=== PATIENT | female | born 1960 | race African-American/Black ===

== ENCOUNTER 2021-01-10 07:56 | Outpatient (REF) | payer OTHER, SELFPAY ==
--- NOTE | ~2021-01-10 | MM_ITS ---
EXAMINATION: MM SCREENING DIGITAL BREAST TOMOSYNTHESIS, BILATERAL CLINICAL INFORMATION: Screening. Asymptomatic. The lifetime risk of breast cancer based on the Tyrer-Cuzick Model is 7%. COMPARISON: Mammography: 01/05/2020, 12/30/2018, 09/17/2017 TECHNIQUE: Digital breast tomosynthesis is performed in both the craniocaudal and mediolateral oblique views along with computer-aided detection (CAD). Synthesized 2D images are generated from the tomosynthesis. FINDINGS: There are scattered areas of fibroglandular density (ACR BI-RADS breast composition Category b). There are no significant masses, abnormal calcifications, or other abnormalities. Parenchymal pattern is similar to prior studies. There is denser breast tissue composition in the bilateral anterior breasts. Intramammary nodes again seen mid upper outer right breast. The axilla and skin contours are unremarkable. No significant changes. MM/MM tomosynthesis screening BI IMPRESSION: No mammographic evidence of malignancy. ASSESSMENT: BI-RADS 2: Benign RECOMMENDATION: Routine annual mammography screening. This patient's information was entered into a reminder system with a target due date for their next mammogram.
== END 2021-01-10 07:57 | disposition home or self-care (01) ==
LOC: HO.MAMMO 07:56
PROVIDERS: PCP Internal Medicine; Visit Provider Internal Medicine
DX: Z12.31 Encounter for screening mammogram for malignant neoplasm of breast (principal)
CPT/HCPCS: 77063; 77067

== ENCOUNTER 2022-01-16 10:09 | Outpatient (REF) | payer OTHER, SELFPAY ==
--- NOTE | ~2022-01-16 | MM_ITS ---
EXAMINATION: MM SCREENING DIGITAL BREAST TOMOSYNTHESIS, BILATERAL CLINICAL INFORMATION: Screening. Asymptomatic. The lifetime risk of breast cancer based on the Tyrer-Cuzick Model is 7%. COMPARISON: Mammography: 01/10/2021, 01/05/2020, 12/30/2018 TECHNIQUE: Digital breast tomosynthesis is performed in both the craniocaudal and mediolateral oblique views along with computer-aided detection (CAD). Synthesized 2D images are generated from the tomosynthesis. FINDINGS: There are scattered areas of fibroglandular density (ACR BI-RADS breast composition Category b). There is no developing density or interval mass or architectural abnormality. The axilla and skin contours are unremarkable. Left breast shows no abnormal calcifications. Right breast has fine calcifications mid outer breast, likely 10:00 position, questionably increased. Patient will be recalled for additional imaging. MM/MM tomosynthesis screening BI IMPRESSION: Right: -Fine calcifications mid outer right breast questionably increased. Left: -No mammographic evidence of malignancy. ASSESSMENT: BI-RADS 0: Incomplete - Need Additional Imaging Evaluation RECOMMENDATION: 1. Additional views of the right breast (magnification CC, magnification ML). 2. Radiology department staff will contact the patient for additional imaging. This patient's information was entered into a reminder system with a target due date for their next mammogram.
== END 2022-01-16 10:10 | disposition home or self-care (01) ==
LOC: HO.MAMMO 10:09
PROVIDERS: Visit Provider Internal Medicine
DX: Z12.31 Encounter for screening mammogram for malignant neoplasm of breast (principal)
CPT/HCPCS: 77063; 77067

== ENCOUNTER 2023-01-22 08:50 | Outpatient (REF) | payer MEDICARE, SELFPAY ==
--- NOTE | ~2023-01-22 | MM_ITS ---
EXAMINATION: MM SCREENING DIGITAL BREAST TOMOSYNTHESIS, BILATERAL CLINICAL INFORMATION: Screening. Asymptomatic. The patient for additional imaging from the 01/16/2022 mammogram for further evaluation of calcifications in the upper outer quadrant of the right breast. She did not return. The current mammogram is the only mammogram performed since that time. COMPARISON: Mammography: This study is compared with prior exams dating back to 2018. TECHNIQUE: Digital breast tomosynthesis is performed in both the craniocaudal and mediolateral oblique views along with computer-aided detection (CAD). Synthesized 2D images are generated from the tomosynthesis. FINDINGS: There are scattered areas of fibroglandular density (ACR BI-RADS breast composition Category b). There are faint, grouped calcifications in the upper outer quadrant of the right breast at a middle depth. Further mammographic evaluation magnification is advised. In the left breast, there are no significant masses, abnormal calcifications, or other abnormalities. MM/MM tomosynthesis screening BI IMPRESSION: Right breast calcifications warrant additional mammographic imaging with magnification. No mammographic signs of malignancy left breast. ASSESSMENT: BI-RADS BI-RADS 0 - Incomplete: Needs additional Imaging. RECOMMENDATION: Additional views of the right breast with magnification. Radiology department staff will contact the patient for additional imaging. Additional Imaging required This examination should not preclude the clinical evaluation of a suspicious palpable abnormality. This patient's information was entered into a reminder system with a target due date for their next mammogram.
== END 2023-01-22 08:51 | disposition home or self-care (01) ==
LOC: HO.MAMMO 08:50
PROVIDERS: PCP Internal Medicine; Visit Provider Internal Medicine
DX: Z12.31 Encounter for screening mammogram for malignant neoplasm of breast (principal)
CPT/HCPCS: 77063; 77067

== ENCOUNTER → 2023-01-22 09:00 | Outpatient (BNV) | payer MEDICARE, SELFPAY | PROVIDERS: PCP Internal Medicine; Visit Provider Radiology Diagnostic Radiology | DX: Z12.31 Encounter for screening mammogram for malignant neoplasm of breast (principal) | CPT/HCPCS: 77063; 77067 ==

== ENCOUNTER 2023-04-06 10:58 | Outpatient (REF) | payer MEDICARE, SELFPAY ==
--- NOTE | ~2023-04-06 | MM_ITS ---
EXAMINATION: MM DIAGNOSTIC DIGITAL MAMMOGRAPHY, RIGHT CLINICAL INFORMATION: Evaluate calcifications upper outer quadrant right breast middle one third. COMPARISON: Mammography: 01/22/2023, and dating back to 2012. TECHNIQUE: Digital mammography is performed in the following views: Spot magnification 2-D CC and ML views. FINDINGS: There are scattered areas of fibroglandular density (ACR BI-RADS breast composition Category b). Calcifications in the upper outer quadrant of the right breast have been present since 2014, however never formally evaluated with magnification views it is likely that they are unchanged and benign, however I have no prior magnification views to compare directly. Recommend six-month interval follow-up right breast CC and ML magnification views to ensure stability. MM/MM added views RT IMPRESSION: Additional views show no probably benign calcifications upper outer right breast, previously followed but no magnification views were obtained to compare. Hence, six-month interval follow-up with standard magnification views recommended. ASSESSMENT: BI-RADS BI-RADS 3 - Probably benign finding(s) - 6 month follow-up suggested RECOMMENDATION: 6 Month F/U This patient's information was entered into a reminder system with a target due date for their next mammogram.
== END 2023-04-06 10:59 | disposition home or self-care (01) ==
LOC: HO.MAMMO 10:58
PROVIDERS: PCP Internal Medicine; Visit Provider Internal Medicine
DX: R92.8 Other abnormal and inconclusive findings on diagnostic imaging of breast (principal)
CPT/HCPCS: 77065

== ENCOUNTER → 2023-04-06 11:00 | Outpatient (BNV) | payer MEDICARE, SELFPAY | PROVIDERS: PCP Internal Medicine; Visit Provider Radiology Diagnostic Radiology | DX: R92.1 Mammographic calcification found on diagnostic imaging of breast (principal) | CPT/HCPCS: 77065 ==

== ENCOUNTER 2023-10-05 11:20 | Outpatient (REF) | payer MEDICARE, SELFPAY ==
--- NOTE | ~2023-10-05 | MM_ITS ---
EXAMINATION: MM DIAGNOSTIC DIGITAL BREAST TOMOSYNTHESIS, RIGHT CLINICAL INFORMATION: 6 month follow-up for right breast calcifications upper outer quadrant, middle depth. COMPARISON: Mammography: 04/06/2023, 01/22/2023 (BI-RADS 0), 01/16/2022, and dating back to 2012. TECHNIQUE: Digital left breast tomosynthesis is performed in both the craniocaudal and mediolateral oblique views along with computer-aided detection (CAD). Synthesized 2D images are generated from the tomosynthesis. In addition, 2-D spot magnification right CC and ML views were obtained. FINDINGS: There are scattered areas of fibroglandular density (ACR BI-RADS breast composition Category b). Calcifications in the upper outer quadrant of the right breast have been present since 2014, and are completely unchanged from the prior magnification views as well as dating back to 2014 on prior mammograms. There has been no aggressive change, there is no significant pleomorphism, and these are benign. Stable lymph node in the upper outer right breast middle one third. Parenchymal pattern is unchanged. No new masses or areas of architectural distortion. No skin or axillary abnormalities. MM/MM tomosynthesis diagnostic RT IMPRESSION: -Calcifications are unchanged from the prior magnification views 04/06/2023. There are also unchanged from prior mammograms dating back to 2014. These are benign and no further follow-up is deemed necessary. -Recommend the patient resume routine annual screening mammography in January 2024. ASSESSMENT: BI-RADS BI-RADS 2 - Benign Findings RECOMMENDATION: 1 year F/U Results were provided to the patient at time of visit by the technologist. This patient's information was entered into a reminder system with a target due date for their next mammogram.
== END 2023-10-05 11:21 | disposition home or self-care (01) ==
LOC: HO.MAMMO 11:20
PROVIDERS: PCP Internal Medicine; Visit Provider Internal Medicine
DX: R92.8 Other abnormal and inconclusive findings on diagnostic imaging of breast (principal)
CPT/HCPCS: 77061; 77065

== ENCOUNTER → 2023-10-05 11:30 | Outpatient (BNV) | payer MEDICARE, SELFPAY | PROVIDERS: PCP Internal Medicine; Visit Provider Radiology Diagnostic Radiology | DX: R92.1 Mammographic calcification found on diagnostic imaging of breast (principal) | CPT/HCPCS: 77065; G0279 ==

== ENCOUNTER 2024-01-28 09:05 | Outpatient (REF) | payer MEDICARE, SELFPAY ==
--- NOTE | ~2024-01-28 | MM_ITS ---
EXAMINATION: MM SCREENING DIGITAL BREAST TOMOSYNTHESIS, BILATERAL CLINICAL INFORMATION: Screening. Asymptomatic. COMPARISON: Mammography: Comparison is made with available priors TECHNIQUE: Digital breast mammography with tomosynthesis is performed in both the craniocaudal and mediolateral oblique views along with computer-aided detection (CAD). FINDINGS: There are scattered areas of fibroglandular density (ACR BI-RADS breast composition Category b). There are no significant masses, abnormal calcifications, or other abnormalities. MM/MM tomosynthesis screening BI IMPRESSION: No mammographic evidence of malignancy. ASSESSMENT: BI-RADS BI-RADS 1 - Negative RECOMMENDATION: Routine annual mammography screening. 1 year F/U This examination should not preclude the clinical evaluation of a suspicious palpable abnormality. This patient's information was entered into a reminder system with a target due date for their next mammogram. Electronically signed by: Antonella Roque DO 02/10/2024 10:08 AM TRES
== END 2024-01-28 09:06 | disposition home or self-care (01) ==
LOC: HO.MAMMO 09:05
PROVIDERS: Visit Provider Internal Medicine
DX: Z12.31 Encounter for screening mammogram for malignant neoplasm of breast (principal)
CPT/HCPCS: 77063; 77067

== ENCOUNTER → 2024-01-28 09:15 | Outpatient (BNV) | payer MEDICARE, SELFPAY | PROVIDERS: Visit Provider Internal Medicine | DX: Z12.31 Encounter for screening mammogram for malignant neoplasm of breast (principal) | CPT/HCPCS: 77063; 77067 ==

== ENCOUNTER 2024-10-17 09:19 | Outpatient (AMB) | payer MEDICARE, SELFPAY ==
--- NOTE | 2024-10-17 09:22 | MHC.OFFVIS ---
Vital Signs 10/17/24 09:27 Height 5 ft 4 in Intake Visit Reasons: 6m Allergies No Known Allergies (No Known Allergies*) Allergy (Unverified 10/17/24 09:28) Medication List - Last Reconciled 10/17/24 by Rima Mendoza CNP glipizide ER 2.5 mg PO DAILY hydroxyzine HCl 25 mg PO DAILY lisinopril 2.5 mg PO DAILY metformin 1,000 mg PO BID oxybutynin chloride ER 15 mg PO DAILY pantoprazole 20 mg PO DAILY pravastatin 40 mg PO DAILY sertraline 100 mg PO DAILY HPI Comments Details: 64 y/o RH woman who was admitted at [facility] in October of 2019 with SAH. No etiology of bleed was discovered. She was put on an antiepileptic but it was not clear if she had a seizure. 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 She was not able to communicate since then, but this was improving. 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 She had a difficult month after her mother passed in 05/2024 before her birthday. She was doing better now and mood was okay. She was trying to speak more and her speech was more clear. Sleep was better now. She was not taking hydroxyzine every night. She was able to sleep through the night unless her dog woke her, but she was able to fall back to sleep. She was going for some walks, no falls. [facility] Medical History (Updated 10/17/24 @ 09:37 by Rima Mendoza CNP) HLD (hyperlipidemia) Somatization disorder Depression Aphasia Cerebral infarction Subarachnoid hemorrhage Seizure disorder Stroke Cerebral aneurysm Myoclonus Insomnia GERD (gastroesophageal reflux disease) Type 2 diabetes mellitus Review of Systems Const Denies chills, Denies daytime sleepiness, Denies difficulty sleeping, Denies fatigue, Denies fever(s), Denies frequent falls, Denies headache(s), Denies increased appetite, Denies poor appetite, Denies snoring, Denies weakness, Denies weight gain and Denies weight loss Eyes Denies loss of vision ENT Denies vertigo, Denies dizziness and Denies headache(s) Card Denies chest pain at rest, Denies chest pain with activity, Denies leg edema and Denies palpitations Resp Denies snoring GI Denies constipation, Denies heartburn, Denies diarrhea and Denies nausea Denies urinary frequency, Denies urinary incontinence and Denies urinary urgency Musc Denies abnormal gait, Denies numbness and Denies tingling Skin/Breast Denies dry skin and Denies rash Neuro Details: +Difficulty speaking Denies abnormal gait, Denies vertigo, Denies dizziness, Denies frequent falls, Denies headache(s), Denies lack of coordination, Denies loss of vision, Denies memory loss, Denies numbness, Denies restless legs, Denies seizure-like activity, Denies tingling, Denies paresthesias, Denies tremor(s) and Denies weakness Psych Denies anxiety, Denies depression, Denies auditory hallucinations, Denies memory loss, Denies visual hallucinations and Denies suicidal ideation Endo Denies fatigue and Denies palpitations Physical Exam Const Other: General Appearance:? normal, in no acute distress. Skin:? no rashes, no significant birthmarks. Heart:? S1, S2 normal, no murmurs. Lungs:? clear anteriorly and posteriorly. Extremities:? no edema. Psych:? alert, oriented, cognitive function intact, cooperative with exam. Neuro Other: Mental Status:?Decreased spontaneous speech and fluency has improved, able to speak in full sentences. Intact comprehension. Able to read single word. Cranial Nerves:?Pupils are equal, round and reactive to light. External occular muscles are intact. Visual fajardo are full. Face is symmetrical. Facial sensations are normal. Tongue is midline. Palate elevates symmetrically. Shoulder shrugging is normal. Hearing to bedside conversation is normal. Motor Examination:?Normal muscle tone, bulk and strength,?Deep tendon reflexes are 2+,?Plantars are flexor.? Sensory Exam:?....? Coordination:?no ataxia,?no titubation.? Gait Exam: Slow and cautious. Cerebellar Signs:?[id number] and [id number]-[id number] is normal.? Extrapyramidal System:?No tremor, rigidity with normal facial expressions.? Pronator Drift:?not present.? Involuntary Movements:?Irregular sometime rhythmic and sometime jerking type right arm sometime left arm and at times head movements.? Speech:?Dysphasic. ? Assessment & Plan Assessment & Plan (1) Aphasia: Code(s): R47.01 - Aphasia Category: Medical Plan: Continue sertraline 100mg 1 tablet daily (2) Insomnia: Code(s): G47.00 - Insomnia, unspecified Category: Medical Qualifiers: Insomnia type: unspecified Qualified Code(s): G47.00 - Insomnia, unspecified Plan: Continue hydroxyzine 25mg 1 tablet as needed at bedtime (3) Somatization disorder: Code(s): F45.0 - Somatization disorder Category: Medical Plan: . Plan . Coding Level of Care Code Est Pt Level 4 (83652) Diagnoses Aphasia R47.01 Insomnia, unspecified type G47.00 Insomnia type: unspecified Somatization disorder F45.0
--- OUTSIDE RECORDS SUMMARY | 2024-10-17 09:29 | XMS_ITS | Patient Health Record ---
Author Organization [facility] Address [address] [place] [address] Care Team Providers Care Plumbing Foreman Name Role Phone Nadir AREVALO, Feliz Primary Care Provider Unavail able BlackMounika Unavailable [phone] Reason For Referral No Information Medications Medication SIG (Take, Route, Frequency, Duration) Notes Start Date End Date Status metFORMIN HCl 500 MG 1 tablet with meals Orally Twice a day 12/13/2014 Active oxyBUTYnin Chloride ER 15 MG 1 tablet Orally Once a day 12/13/2014 A ctive Problems Problem Type SNOMED Code ICD Code Onset Dates Problem Status W/U Status Risk Notes Problem Hallux valgus (972878754) Hallux Valgus (735.0) Active confirmed Problem Hammer toe (672749017) Hammer toe (735.4) Active confirmed Problem Pain in limb (86459483) Pain in Limb (729.5) Active confirmed Plan Of Treatment No Information Insurance Providers Payer Name Payer Address Payer Phone Subscriber Number Group Number Insured Name Patient Relationship to Insured Coverage Start Date Coverage End Date [facility] [address] [place] [address] [id number] Haven Burnett Self - patient is the insured Medical (General) History Medical History History ICD Code Diabetic Surgical History Surgery Date(Month/Year) bunionectomy right foot 2000 or 2001 right wrist 1999
--- OUTSIDE RECORDS SUMMARY | 2024-10-17 09:29 | XMS_ITS | Patient Health Record ---
Author Organization [facility] Address [address] [place] [address] Care Team Providers Care Lecturer Of Portuguese Name Role Phone Feliz Schmitz Primary Care Provider [place] [phone] Reason For Referral No Information Medications Medication SIG (Take, Route, Frequency, Duration) Notes Start Date End Date Status Simvastatin 20 MG 1 tablet in the even ing Orally Once a day Active Omeprazole 20 MG TK 1 C PO BID Oral for 90 Active metFORMIN HCl 500 MG TK 1 T PO BID WC Or al for 90 Active oxyBUTYnin Chloride ER 15 MG TK 1 T PO BID Oral for 90 Ac tive Problems Problem Type SNOMED Code ICD Code Onset Dates Problem Status W/U Status Risk Notes Problem [id number] Encounter for screening for malignant neoplasm of colon (Z12.11) Active confirmed Problem Screening for malignant neoplasm of rectum (876457286) Encounter for screening for malignant neoplasm of rectum (Z12.12) Active confirmed Problem 577229305 Gastroesophageal reflux disease, esophagitis presence not specified (K21.9) Active confirmed Plan Of Treatment Pending Test Test Name Order Date GI BIOPSY 08/23/2016 Future Test Test Name Order Date UPPER GI ENDOSCOPY 05/04/2016 COLONOSCOPY 05/04/2016 Insurance Providers Payer Name Payer Address Payer Phone Subscriber Number Group Number Insured Name Patient Relationship to Insured Coverage Start Date Coverage End Date [facility] [address] [place] [phone] [id number] CLAUDETTE PADILLA Self - patient is the insured Medical (General) History Medical History History ICD Code NIDDM Urinary incontinence Denies PA,CVA,Lung disease,renal disease GERD Hyperlipidemia Surgical History Surgery Date(Month/Year) Left carpal tunnel Right foot bunion
--- OUTSIDE RECORDS SUMMARY | 2024-10-17 09:29 | XMS_ITS | Clinical Summary ---
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 E11. 4 Active blood-glucose meter kit Check glucose at home every day. 4 Active FREESTYLE LANCETS MISC Use to check blood sugar once daily fasting. E11. 4 Active blood sugar diagnostic (FreeStyle Lite Strips) test strip Use to check blood sugar once daily fasting. E11. 4 Active OneTouch Ultra Test test strip Use as directed to check fsbs daily 4 12/25/19 25 Active ONETOUCH ULTRASOFT LANCETS MISC Use as directed to check fsbs daily 4 Active sertraline (ZOLOFT) 100 mg tablet Take 100 mg by mouth daily. Dr Boone Active pravastatin (PRAVACHOL) 40 mg tablet Take 1 tablet (40 mg total) by mouth 1 (one) time each day. 90 each 3 4 03/29/20 25 Active lisinopriL (PRINIVIL,ZESTR IL) 2.5 mg tablet Take 1 tablet (2.5 mg total) by mouth 1 (one) time each day. 90 each 3 4 03/29/20 25 Active glipiZIDE (GLUCOTROL XL) 2.5 mg 24 hr tablet Take 1 tablet (2.5 mg total) by mouth 1 (one) time each day. 90 each 3 4 03/29/20 25 Active metFORMIN (GLUCOPHAGE) 1,000 mg tablet Take 1 tablet (1,000 mg total) by mouth 2 (two) times a day with meals. 180 each 3 4 03/29/20 25 Active oxyBUTYnin XL (DITROPAN-XL) 15 mg 24 hr tablet Take 1 tablet (15 mg total) by mouth 1 (one) time each day. 90 each 3 4 03/29/20 25 Active pantoprazole (PROTONIX) 20 mg EC tablet Take 1 tablet (20 mg total) by mouth 1 (one) time each day. 90 each 3 4 03/29/20 25 Active OneTouch Ultra2 Meter misc CHECK GLUCOSE AT HOME EVERY DAY. 1 kit 5 Active hydrOXYzine HCL (ATARAX) 25 mg tablet TAKE 1 TABLET ORALLY NEEDED AT BEDTIME ONCE A DAY 90 DAY(S) 5 Active Active Problems Problem Noted Date Diagnosed Date Aphasia as late effect of cerebrovascular accide nt (CVA) 06/13/2020 Assessment & Plan (10/01/2024 9:12 AM EDT): Follows regularly with neuro. Assessment & Plan (03/30/2024 2:47 PM EST): Follows regularly with neuro. Weakness of extremity 12/07/2019 Essential hypertension 06/16/2018 Assessment & Plan (10/01/2024 9:12 AM EDT): The patient's antihypertensive regimen is based on their underlying medical issues. At the time of this visit, the blood pressure is well controlled on low dose of Lisinopril. The patient is instructed to follow a low sodium diet and to follow up in 4 months. Normal kidney function and electrolytes. Assessment & Plan (03/30/2024 2:47 PM EST): The patient's antihypertensive regimen is based on their underlying medical issues. At the time of this visit, the blood pressure is well controlled on low dose of Lisinopril. The patient is instructed to follow a low sodium diet and to follow up in 4 months. Normal kidney function and electrolytes. Orders: Hemoglobin A1c; Future Lipid panel with reflex to direct LDL; Future Basic metabolic panel; Future Hyperlipidemia 04/05/2018 Assessment & Plan (10/01/2024 9:12 AM EDT): Given the patients cardiac risk profile, the patient requires an LDL cholesterol of less than 70. I have instructed the patient on the principles of a low cholesterol diet and the importance of regular exercise. Will check a lipid profile before next visit Assessment & Plan (03/30/2024 2:47 PM EST): Given the patients cardiac risk profile, the patient requires an LDL cholesterol of less than 70. I have instructed the patient on the principles of a low cholesterol diet and the importance of regular exercise. Will check a lipid profile before next visit Orders: Hemoglobin A1c; Future Lipid panel with reflex to direct LDL; Future Basic metabolic panel; Future Carpal tunnel syndrome 11/30/2017 Overview (02/23/2024): 1995 Right-surgery Depression 11/30/2017 GERD (gastroesophageal reflux disease) 8 Microalbuminuria 11/30/2017 Type 2 diabetes mellitus wit h neurologic complication ([facility] V24, [facility] V28) 11/30/2017 Assessment & Plan (10/01/2024 9:12 AM EDT): Orders: Comprehensive metabolic panel; Future Hemoglobin A1c; Future Lipid panel with reflex to direct LDL; Future Microalbumin creatinine urine ratio; Future Assessment & Plan (05/28/2024 2:35 PM EST): Continue her regular meds. Will follow up in September. Assessment & Plan (03/30/2024 2:47 PM EST): Orders: Hemoglobin A1c; Future Lipid panel with reflex to direct LDL; Future Basic metabolic panel; Future Type 2 diabetes mellitus wit h renal manifestations ([facility] V24, [facility] V28) 11/30/2017 Assessment & Plan (10/01/2024 2:44 PM EDT): Good control of diabetes. Patient will continue with yearly Podiatric and Ophthomologic evaluations. Will continue Angiotensin Converting Enzyme Inhibitor for renal protection. Glipizide and Metformin. We discussed about healthy diet, and regular exercise. We will check a hemoglobin A1c today. Patient will follow up in 6 months Orders: Comprehensive metabolic panel; Future Hemoglobin A1c; Future Lipid panel with reflex to direct LDL; Future Microalbumin creatinine urine ratio; Future Assessment & Plan (03/30/2024 2:47 PM EST): Fair control of diabetes. Patient will continue with yearly Podiatric and Ophthomologic evaluations. Will continue Angiotensin Converting Enzyme Inhibitor for renal protection. Glipizide and Metformin. We discussed about healthy diet, and regular exercise. We will check a hemoglobin A1c today. Patient will follow up in 4 months Orders: Hemoglobin A1c; Future Lipid panel with reflex to direct LDL; Future Basic metabolic panel; Future Urinary incontinence 11/30/2017 Overview (02/23/2024): stress Encounters Date Type Department Care Team Description 10/01/2024 9:00 AM EDT Office Visit Adult Medicine [address] [phone] Nemo Hand MD Type 2 diabetes mellitus with diabetic microalbuminuria, without long-term current use of insulin ([facility] V24, [facility] V28) (Primary Dx); Type 2 diabetes mellitus with other neurologic complication, without long-term current use of insulin ([facility] V24, [facility] V28); Essential hypertension; Mixed hyperlipidemia; Aphasia as late effect of cerebrovascular accident (CVA); Screening for depression; Pneumococcal vaccination indicated; Encounter for immunization from Last 3 Months Immunizations Name Administration Dates Next Due Influenza Quadravalent, MDCK , 0.5ml, preservative free (Flucelvax) 6mo and older 01/13/2023,01/13/2022,02/17/2021,2019,01/04/2018 Influenza trivalent, 0.5mL, preservative free (Fluarix; FluLaval; Fluzone) ages 6mo and older (Afluria) 3 years and older 01/13/2016 Influenza trivalent, MDCK, 0 .5mL, preservative free (Flucelvax) 6mo and older 03/29/2024 Influenza, Unspecified 12/17/2018 Moderna SARS-CoV-2 COVID-19, mRNA, LNP-S, preservative free 04/04/2021,08/30/2020,08/02/2020 Pneumococcal conjugate 13 va lent (Prevnar 13, PCV13) 2mo and older 06/16/2018 Pneumococcal conjugate 20 va lent (Prevnar 20, PCV 20) 2mo and older 10/01/2024 Tdap Tetanus diptheria acell ular pertussis (Boostrix; Adacel) 7yo and older 05/16/2023,02/28/2012 Zoster recombinant (Shingrix ) 19yo and older 11/09/2017,07/25/2017 Surgical History Surgery Date Site/Laterality Comments TUBAL LIGATION 1993 PROCEDURE: HISTORICAL TUBAL LIGATION SECTION 1993 PROCEDURE: HISTORICAL COLONOSCOPY 08/23/2016 PROCEDURE: HISTORICAL COLONOSCOPY; COMMENT: EGD as well; Small hiatal hernia, GERD, mild sigmoid diverticulosis, internal hemorrhoids; repeat 10 yrs FOOT SURGERY Right PROCEDURE: HISTORICAL FOOT SURGERY; COMMENT: bunionectomy CARPAL TUNNEL RELEASE 1994 Right PROCEDURE: HISTORICAL CARPAL TUNNEL REL Medical History Medical History Date Comments Type 2 diabetes mellitus wit h renal manifestations ([facility] V24, [facility] V28) 11/30/2017 DX: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) Microalbuminuria 11/30/2017 DX:Microalbumin uria Type 2 diabetes mellitus wit h neurologic complication ([facility] V24, [facility] V28) 11/30/2017 DX: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) Carpal tunnel syndrome 11/30/2017 DX:Carpal tunnel syndrome; COMMENT: 1994 Right-surgery Urinary incontinence 11/30/2017 DX:Urinary incontinence; COMMENT: stress GERD (gastroesophageal reflux disease) 11/30/2017 DX:GERD (gastroesophageal reflux disease) Hyperlipidemia 04/05/2018 DX:Hyperlipidemi a Essential hypertension 06/16/2018 DX:Essent ial hypertension Subarachnoid bleed ([facility] V24, [facility] V28) 12/07/2019 DX:Subarachnoid bleed ([facility]) Family History Medical History Relation Name Comments Asthma Brother Arthritis Maternal Grandmother Diabetes Mother hypertension Relation Name Status Comments Brother Alive Father (Age 80s) Maternal Grandmother Mother Alive Son 1 Alive Son 2 Alive Social History Tobacco Use Types Packs/Day Years Used Date Smoking Tobacco: Never Smokeless Tobacco: Never Tobacco Cessation:Counseling Given: Not Answered Alcohol Use Standard Drinks/Week Comments Yes 0 (1 standard drink = 0.6 oz pur e alcohol) Housing Instability Answer Date Recorde d Are you worried that in the next 2 months you may not have stable housing? No 03/29/2024 Food Access & Nutrition Answer Date Rec orded Do you have access to a vari ety of food including fruits and vegetables? Yes 03/29/2024 Access to Healthcare Answer Date Record ed Within the last 3 months, ho w many times did you visit the emergency department for your medical care? 0 03/29/2024 Health Literacy Answer Date Recorded How often do you need to hav e someone help you when you read instructions, pamphlets, or other written material from your doctor or pharmacy? Never 03/29/2024 Caregiver: How often do you need to have someone help you when you read instructions, pamphlets, or other written material from your doctor or pharmacy? Not on file 03/29/2024 Financial Risk Answer Date Recorded How hard is it for you to pa y for the very basics like food, housing, medical care, and air conditioning / heating? Not very hard 03/29/2024 Transportation Answer Date Recorded Has the lack of transportati on kept you from meetings, work, or from getting things needed for daily living? No Has the lack of transportati on kept you from medical appointments or from getting medications? No 03/29/2024 Social Isolation Answer Date Recorded How often do you feel lonely or isolated from th ose around you? Never 03/29/2024 Food Risk Answer Date Recorded Within the past 12 months we worried whether our food would run out before we got money to buy more. Never true 03/29/2024 Within the past 12 months th e food we bought just didn't last and we didn't have money to get more. Never true 03/29/2024 Dependent Care Answer Date Recorded Do you need help finding or paying for care for your loved ones. For example, child care director or elderly care for an older adult? No 03/29/2024 Education Answer Date Recorded Do you think completing more education or training, like finishing a GED, going to college, or learning a trade, would be helpful for you? No 03/29/2024 Employment and Income Answer Date Recor ded During the last four weeks, have you been actively looking for work? No 03/29/2024 Living Situation Answer Date Recorded What is your living situation? 1 05/30/2023 Comments No Sex and Gender Information Value Date Recorded Sex Assigned at Not on file Legal Sex Female 1:56 PM EST Gender Identity Not on file Sexual Orientation Not on file Obstetrics History Last Filed Vital Signs Vital Sign Reading Time Taken Comments Blood Pressure 120/77 10/01/2024 8:49 AM EDT Pulse 73 10/01/2024 8:49 AM EDT Temperature 35.9 C (96.7 F) 10/01/2024 8:49 AM EDT Respiratory Rate 14 10/01/2024 8:49 AM EDT Oxygen Saturation - - Inhaled Oxygen Concentration - - Weight 93.7 kg (206 lb 9.6 oz) 10/01/2024 8:49 A M EDT Height 162.6 cm (5' 4 ) 10/01/2024 8:49 AM EDT Body Mass Index 35.46 10/01/2024 8:49 AM EDT Plan of Treatment Upcoming Encounters Date Type Department Care Team (Late st Contact Info) Description 04/02/2025 9:30 AM EST Office Visit Adult Medicine [address] [phone] Nemo Mckinney MD [address] [place] [phone] Health Maintenance Due Date Last Done Comments HIV Screening 03/27/2022 Medicare Annual Wellness Visit 03/27/2022 RSV Immunization Adult Patients (1 - Risk 60-74 years 1-dose series) 2022 Breast Cancer Screening 01/27/2025 01/28/2024 Diabetes: Annual Urine Albumin-Creatinine Ratio (uACR) 03/26/2025 03/26/2024, 06/18/2022 Diabetes: Blood Sugar Control Test (HGBA1C) 03/28/2025 09/26/2024, 03/29/2024, 11/18/2023, Additional history exists Diabetes: Annual Foot Exam 03/29/2025 03/29/2024 Social Influencers of Health Screening 03/29/2025 03/29/2024 Diabetes: Annual Retina Eye Exam 07/01/2025 07/01/2024, 06/24/2023 Diabetes: Annual GFR (Glomerular Filtration Rate) 09/26/2025 09/26/2024, 03/26/2024, 11/18/2023, Additional history exists Hypertension/CHF/CAD Annual BMP Blood Test 09/26/2025 09/26/2024, 03/26/2024, 11/18/2023, Additional history exists Depression Screening 09/27/2025 09/27/2024 Colorectal Cancer Screening: Colonoscopy 08/23/2026 08/23/2016 Cervical Cancer Screening: HPV 09/09/2026 09/09/2021 Cholesterol Screening (Lipid Panel) 09/26/2029 09/26/2024, 11/18/2023, 11/18/2023 DTaP,Tdap,and Td Vaccines (3 - Td or Tdap) 05/16/2033 05/16/2023, 02/28/2012 Zoster Vaccines Completed 11/09/2017, 07/25/2017 Hepatitis C Screening Completed 10/07/2018 COVID-19 Vaccine Completed 02/29/2024, , 08/30/2020, Additional history exists Influenza Vaccine Completed 03/29/2024, , 01/13/2022, Additional history exists Pneumococcal Vaccine: 50+ Years Completed 10/01/2024, 06/16/2018 Pneumococcal Vaccine: Pediatrics (0 to 5 Years) and At-Risk Patients (6 to 64 Years) Discontinued 10/01/2024, 06/16/2018 HIB Vaccines Aged Out No longer eligi ble based on patient's age to complete this topic HPV Vaccines Aged Out No longer eligi ble based on patient's age to complete this topic Hepatitis A Vaccines Aged Out No long er eligible based on patient's age to complete this topic Hepatitis B Vaccines Aged Out No long er eligible based on patient's age to complete this topic IPV Vaccines Aged Out No longer eligi ble based on patient's age to complete this topic MMR Vaccines Aged Out No longer eligi ble based on patient's age to complete this topic Meningococcal ACWY Vaccine Aged Out N o longer eligible based on patient's age to complete this topic Meningococcal B Vaccine Aged Out No l onger eligible based on patient's age to complete this topic RSV Immunization Patients Under 20 months Aged Out No longer eligible based on patient's age to complete this topic Varicella Vaccines Aged Out No longer eligible based on patient's age to complete this topic Procedures Procedure Name Priority Date/Time Associated Diagnosis Comments HEMOGLOBIN A1C Routine 09/26/2024 9:27 AM EDT Type 2 diabetes mellitus with diabetic microalbuminuria, without long-term current use of insulin ([facility] V24, [facility] V28) Type 2 diabetes mellitus with other neurologic complication, without long-term current use of insulin ([facility] V24, [facility] V28) Essential hypertension Mixed hyperlipidemia LIPID PANEL WITH REFLEX TO DIRECT LDL Routine 09/26/2024 9:27 AM EDT Type 2 diabetes mellitus with diabetic microalbuminuria, without long-term current use of insulin ([facility] V24, [facility] V28) Type 2 diabetes mellitus with other neurologic complication, without long-term current use of insulin ([facility] V24, [facility] V28) Essential hypertension Mixed hyperlipidemia BASIC METABOLIC PANEL Routine 09/26/2024 9:27 AM EDT Type 2 diabetes mellitus with diabetic microalbuminuria, without long-term current use of insulin ([facility] V24, [facility] V28) Type 2 diabetes mellitus with other neurologic complication, without long-term current use of insulin ([facility] V24, [facility] V28) Essential hypertension Mixed hyperlipidemia MICROALBUMIN CREATININE URINE RATIO Routine 03/26/2024 10:17 AM EST Type 2 diabetes mellitus with neurologic complication ([facility] V24, [facility] V28) Essential hypertension Type 2 diabetes mellitus with renal manifestations ([facility] V24, [facility] V28) Microalbuminuria EXTERNAL MAMMOGRAM REPORT Routine 01/28/2024 3:27 PM EDT DIABETES EYE EXAM Routine 06/24/2023 HPV Routine 09/09/2021 HEPATITIS C SCREENING Routine 10/07/2018 COLONOSCOPY Routine 08/23/2016 from Last 3 Months or Most Recently Relevant to Health Maintenance Results * (ABNORMAL) Lipid panel with reflex to direct LDL (09/26/2024 9:27 AM EDT) Cholesterol 142 0 - 200 mg/dL LAB CHEMISTRY METHOD 09/26/2024 1:22 PM EDT [facility] Triglycerides 101 0 - 150 mg/dL LAB CHEMISTRY METHOD 09/26/2024 1:22 PM EDT [facility] HDL 39(L) >=40 mg/dL LAB CHEMISTRY METHOD 09/26/2024 1:22 PM EDT [facility] LDL Calculated 83 0 - 100 mg/dL LAB CHEMISTRY METHOD 09/26/2024 1:22 PM EDT [facility] VLDL Cholesterol Harrison 20.2 mg/dL LAB CHEMISTRY METHOD 09/26/2024 1:22 PM EDT [facility] Non HDL Chol. (LDL+VLDL) 103 <145 mg/dL LAB CHEMISTRY METHOD 09/26/2024 1:22 PM EDT [facility] Chol/HDL Ratio 3.6 0.0 - 4.4 LAB CHEMISTRY METHOD 09/26/2024 1:22 PM EDT [facility] Blood Venous blood specimen / Unknown Venipuncture / Unknown 09/26/2024 9:27 AM EDT 09/26/2024 9:27 AM EDT us Nemo Mckinney MD LAB BLOOD ORDERABL ES Final Result [facility] [address] [place] [address], [place] [phone] * (ABNORMAL) Hemoglobin A1c (09/26/2024 9:27 AM EDT) Pathologist [facility] Hemoglobin A1C 6.9(H) <6.5 % LAB CHEMISTRY METHOD 09/26/2024 8:47 PM EDT [facility] Mean Bld Glu Estim. 151 mg/dL LAB CHEMISTRY METHOD 09/26/2024 8:47 PM EDT [facility] Blood Venous blood specimen / Unknown Venipuncture / Unknown 09/26/2024 9:27 AM EDT 09/26/2024 9:27 AM EDT Nemo Mckinney MD LAB BLOOD ORDERABL ES Final Result [facility] [address] [place] [address], [place] [phone] * (ABNORMAL) Basic metabolic panel (09/26/2024 9:27 AM EDT) [facility] Sodium 138 133 - 145 mmol/L LAB CHEMISTRY METHOD 09/26/2024 1:17 PM EDT [facility] Potassium 4.2 3.5 - 5.5 mmol/L LAB CHEMISTRY METHOD 09/26/2024 1:17 PM EDT [facility] Chloride 103 96 - 110 mmol/L LAB CHEMISTRY METHOD 09/26/2024 1:17 PM EDT [facility] CO2 26 21 - 32 mmol/L LAB CHEMISTRY METHOD 09/26/2024 1:17 PM EDT [facility] Anion Gap 9 3 - 11 LAB CHEMISTRY METHOD 09/26/2024 1:17 PM EDT [facility] Glucose 163(H) 70 - 100 mg/dL LAB CHEMISTRY METHOD 09/26/2024 1:17 PM EDT [facility] BUN 21 5 - 25 mg/dL LAB CHEMISTRY METHOD 09/26/2024 1:17 PM EDT [facility] Creatinine 0.87 0.50 - 1.10 mg/dL LAB CHEMISTRY METHOD 09/26/2024 1:17 PM EDT [facility] eGFR 75 >=60 mL/min/1. 73m2 LAB CHEMISTRY METHOD 09/26/2024 1:17 PM EDT [facility] Comment:Calculation based on the Chronic Kidney Disease Epidemiology Collaboration (CKD-EPI) equation refit without adjustment for race. BUN/Creatinine Ratio 24.1 LAB CHEMISTRY METHOD 09/26/2024 1:17 PM EDT [facility] Calcium 9.0 8.5 - 10.5 mg/dL LAB CHEMISTRY METHOD 09/26/2024 1:17 PM EDT [facility] Blood Venous blood specimen / Unknown Venipuncture / Unknown 09/26/2024 9:27 AM EDT 09/26/2024 9:27 AM EDT us Nemo Mckinney MD LAB BLOOD ORDERABL ES Final Result [facility] [address] [place] [address], * (ABNORMAL) Microalbumin creatinine urine ratio (03/26/2024 10:17 AM EST) Creatinine, Urine 314.0 mg/dL LAB CHEMISTRY METHOD 03/26/2024 2:21 PM EST [facility] Microalb, Ur 46.1(H) 0.0 - 29.0 mg/L LAB CHEMISTRY METHOD 03/26/2024 2:21 PM EST [facility] Microalb/Crea t Ratio 15 <30 mg/g creat LAB CHEMISTRY METHOD 03/26/2024 2:21 PM EST [facility] Urine Urine specimen obtained by clean catch procedure / Unknown Non-blood Collection / Unknown 03/26/2024 10:17 AM EST 03/26/2024 10:17 AM EST Result [facility] Nemo Mckinney MD LAB URINE ORDERABL ES Final Result [facility] ([facility] [[email or web address] [address] [place] [address], * External Mammogram Report (01/28/2024 3:27 PM EDT) Anatomical Region Laterality Modality Mammography Historical Provider IMG BI PROCEDURES Final R esult * Diabetes Eye Exam (06/24/2023) [facility] Diabetes: Annual Retina Eye Exam Abstracted Result [facility] Provider HEALTH MAINTENANCE Final Result * Cervical Cancer Screening: HPV (09/09/2021) [facility] Cervical Cancer Screening: HPV Negative, Abstracted Result [facility] Provider HEALTH MAINTENANCE Final Result * Hepatitis C Screening (10/07/2018) [facility] Hepatitis C Screening Abstracted Result [facility] Provider HEALTH MAINTENANCE Final Result * Colonoscopy (08/23/2016) [facility] Colonoscopy No Interpretation , Abstracted Anatomical Region Laterality Modality Other Result [facility] Historical Provider HEALTH MAINTENANCE Final Result from Last 3 Months or Most Recently Relevant to Health Maintenance Insurance [employer] MED[employer]ARE [employer]AGE Care Teams [employer] 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
== END 2024-10-17 09:41 | disposition home or self-care (01) ==
LOC: HO.HSM 09:19
PROVIDERS: PCP Internal Medicine; Referring Provider Internal Medicine; Visit Provider Registered Nurse
DX: R47.01 Aphasia (principal); G47.00 Insomnia, unspecified; F45.0 Somatization disorder
CPT/HCPCS: 99214

== ENCOUNTER → 2024-10-17 09:19 | Outpatient (BNVA) | payer MEDICARE, SELFPAY | PROVIDERS: PCP Internal Medicine; Referring Provider Internal Medicine; Visit Provider Registered Nurse | DX: R47.01 Aphasia (principal); G47.00 Insomnia, unspecified; F45.0 Somatization disorder | CPT/HCPCS: 99212 ==

== ENCOUNTER 2025-02-02 09:39 | Outpatient (REF) | payer MEDICARE, SELFPAY ==
--- NOTE | ~2025-02-02 | MM_ITS ---
EXAMINATION: MM SCREENING DIGITAL BREAST TOMOSYNTHESIS, BILATERAL CLINICAL INFORMATION: Screening. Asymptomatic. COMPARISON: Comparison made to multiple prior, most recent January 28, 2024, and most remote January 05, 2020. TECHNIQUE: Digital breast tomosynthesis is performed in mediolateral oblique and craniocaudal views along with computer-aided detection (CAD). Synthesized 2D images are generated from the tomosynthesis. FINDINGS: BREAST COMPOSITION: There are scattered areas of fibroglandular density. BILATERAL BREASTS: No significant masses, suspicious calcifications or other abnormalities are seen in either breast. MM/MM tomosynthesis screening BI IMPRESSION: BILATERAL BREASTS: Negative, no mammographic evidence of malignancy. Normal interval follow-up is recommended in 12 months. ASSESSMENT: BI-RADS: Category 1: Negative RECOMMENDATION: Routine annual mammography screening. FOLLOW-UP: 1 year F/U This examination should not preclude the clinical evaluation of a suspicious palpable abnormality. This patient's information was entered into a reminder system with a target due date for their next mammogram. Electronically signed by: René Brown MD 02/04/2025 08:07 PM EDT
--- OUTSIDE RECORDS SUMMARY | 2025-02-02 09:42 | XMS_ITS | Patient Health Record ---
Author Organization [facility] Address [address] [place] [address] Care Team Providers Care Manager Of Employee Relations Name Role Phone Feliz Schmitz Primary Care Provider [place] [phone] Reason For Referral No Information Medications Medication SIG (Take, Route, Frequency, Duration) Notes Start Date End Date Status Simvastatin 20 MG 1 tablet in the even ing Orally Once a day Active Omeprazole 20 MG TK 1 C PO BID Oral; Duration: 90 Active metFORMIN HCl 500 MG TK 1 T PO BID WC Or al; Duration: 90 Active oxyBUTYnin Chloride ER 15 MG TK 1 T PO BID Oral; Duration: 90 Active Problems Problem Type SNOMED Code ICD Code Onset Dates Problem Status W/U Status Risk Notes Problem Screening for malignant neoplasm of colon (389437002) Encounter for screening for malignant neoplasm of colon (Z12.11) Active confirmed Problem Screening for malignant neoplasm of rectum (236708160) Encounter for screening for malignant neoplasm of rectum (Z12.12) Active confirmed Problem Gastroesophageal reflux disease (138070568) Gastroesophageal reflux disease, esophagitis presence not specified (K21.9) Active confirmed Plan Of Treatment Pending Test Test Name Order Date GI BIOPSY 08/23/2016 Future Test Test Name Order Date UPPER GI ENDOSCOPY 05/04/2016 COLONOSCOPY 05/04/2016 Insurance Providers Payer Name Payer Address Payer Phone Subscriber Number Group Number Insured Name Patient Relationship to Insured Coverage Start Date Coverage End Date [facility] [address] [facility] [phone] [id number] CLAUDETTE PADILLA Self - patient is the insured Medical (General) History Medical History History ICD Code NIDDM Urinary incontinence Denies SC,CVA,Lung disease,renal disease GERD Hyperlipidemia Surgical History Surgery Date(Month/Year) Left carpal tunnel Right foot bunion
--- OUTSIDE RECORDS SUMMARY | 2025-02-02 09:42 | XMS_ITS | Patient Health Record ---
Author Organization [facility] Address [address] [place] [address] Care Team Providers Care Fretted String Instrument Repairer Name Role Phone Nadir AREVALO, Feliz Primary Care Provider Unavail able BlackMounika Unavailable [phone] Reason For Referral No Information Medications Medication [...] W/U Status Risk Notes Problem Hallux valgus (307892472) Hallux Valgus (735.0) Active confirmed Problem Hammer toe (971042040) Hammer toe (735.4) Active confirmed Problem Pain in limb (22620769) Pain in Limb (729.5) Active confirmed Plan Of Treatment No Information Insurance Providers Payer Name Payer Address Payer Phone Subscriber Number Group Number Insured Name Patient Relationship to Insured Coverage Start Date Coverage End Date [facility] [address] [place] [address] [id number] Haven Burnett Self - patient is the insured Medical (General) History Medical History History ICD Code Diabetic Surgical History Surgery Date(Month/Year) bunionectomy right foot 2000 or 2001 right wrist 1999
--- OUTSIDE RECORDS SUMMARY | 2025-02-02 09:42 | XMS_ITS | Clinical Summary ---
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 E11. 4 Active ONETOUCH ULTRASOFT LANCETS MISC Use as [...] 2 diabetes mellitus wit h neurologic complication ([facility] V24, [facility] V28) 11/30/2017 Assessment & Plan (10/01/2024 9:12 [...] 2 diabetes mellitus wit h renal manifestations ([facility] V24, [facility] V28) 11/30/2017 Assessment & Plan (10/01/2024 2:44 [...] Future Urinary incontinence 11/30/2017 Overview (02/23/2024): stress Immunizations Immunization Administration Dates Next Due Influenza Quadravalent, MDCK [...] 2 diabetes mellitus wit h renal manifestations ([facility] V24, [facility] V28) 11/30/2017 DX: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) Microalbuminuria 11/30/2017 DX:Microalbumin uria Type 2 diabetes mellitus wit h neurologic complication ([facility] V24, [facility] V28) 11/30/2017 DX: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) Carpal tunnel syndrome 11/30/2017 DX:Carpal tunnel syndrome; COMMENT: 1994 Right-surgery Urinary incontinence 11/30/2017 DX:Urinary incontinence; COMMENT: stress GERD (gastroesophageal reflux disease) 11/30/2017 DX:GERD (gastroesophageal reflux disease) Hyperlipidemia 04/05/2018 DX:Hyperlipidemi a Essential hypertension 06/16/2018 DX:Essent ial hypertension Subarachnoid bleed ([facility] V24, [facility] V28) 12/07/2019 DX:Subarachnoid bleed (HCC) Family History Medical History Relation Name Comments [...] for your loved ones. For example, child watch attendant or elderly care for an older adult? [...] Date Recorded What is your living situation? Unrecognized valu e 03/29/2024 Comments No Sex and Gender Information Value [...] 9:30 AM EST Office Visit Adult Medicine [address] [phone] Nemo Mckinney MD [address] [place] [address] Health Maintenance Due Date Last Done Comments RSV Immunization Adult Patients (1 - Risk 50-74 years 1-dose series) 2012 HIV Screening 03/27/2022 Medicare Annual Wellness Visit 03/27/2022 Influenza Vaccine (#1) 2024 , 01/13/2023, 01/13/2022, Additional history exists Breast Cancer Screening 01/27/2025 01/28/2024 Diabetes: Annual [...] 09/26/2025 09/26/2024, 03/26/2024, 11/18/2023, Additional history exists Colorectal Cancer Screening: Colonoscopy 08/23/2026 08/23/2016 Cervical Cancer Screening: HPV 09/09/2026 09/09/2021 Cholesterol Screening (Lipid Panel) 09/26/2029 09/26/2024, 11/18/2023, 11/18/2023 DTaP,Tdap,and Td Vaccines (3 - Td or Tdap) 05/16/2033 05/16/2023, 02/28/2012 Zoster Vaccines Completed 11/09/2017, 07/25/2017 Hepatitis C Screening Completed 10/07/2018 COVID-19 Vaccine Completed 02/29/2024, , 08/30/2020, Additional history exists Depression Screening Completed 09/27/2024 Pneumococcal Vaccine: 50+ Years Completed 10/01/2024, 06/16/2018 HIB Vaccines Aged Out No [...] Procedure Name Priority Date/Time Associated Diagnosis Comments BASIC METABOLIC PANEL Routine 09/26/2024 9:27 AM EDT Type 2 diabetes mellitus with diabetic microalbuminuria, without long-term current use of insulin ([facility] V24, [facility] V28) Type 2 diabetes mellitus with other neurologic complication, without long-term current use of insulin ([facility] V24, CMS/HCC V28) Essential hypertension Mixed hyperlipidemia HEMOGLOBIN A1C Routine 09/26/2024 9:27 AM EDT Type 2 diabetes mellitus with diabetic microalbuminuria, without long-term current use of insulin ([facility] V24, CMS/HCC V28) Type 2 diabetes mellitus with other neurologic complication, without long-term current use of insulin ([facility] V24, [facility] V28) Essential hypertension Mixed hyperlipidemia LIPID PANEL WITH REFLEX TO DIRECT LDL Routine 09/26/2024 9:27 AM EDT Type 2 diabetes mellitus with diabetic microalbuminuria, without long-term current use of insulin ([facility] V24, [facility] V28) Type 2 diabetes mellitus with other neurologic complication, without long-term current use of insulin ([facility] V24, [facility] V28) Essential hypertension Mixed hyperlipidemia MICROALBUMIN CREATININE URINE RATIO Routine 03/26/2024 10:17 AM EST Type 2 diabetes mellitus with neurologic complication ([facility]/HCC V24, [facility] V28) Essential hypertension Type 2 diabetes mellitus with renal manifestations ([facility] V24, [facility] V28) Microalbuminuria EXTERNAL MAMMOGRAM REPORT Routine 01/28/2024 3:27 PM EDT DIABETES EYE EXAM Routine 06/24/2023 HPV Routine 09/09/2021 HEPATITIS C SCREENING Routine 10/07/2018 COLONOSCOPY Routine 08/23/2016 from Last 3 Months or Most Recently Relevant to Health Maintenance Results * (ABNORMAL) Lipid panel with reflex to direct LDL (09/26/2024 9:27 AM EDT) [facility] Cholesterol 142 0 - 200 mg/dL LAB CHEMISTRY METHOD 09/26/2024 1:22 PM EDT [facility] Triglycerides 101 0 - 150 mg/dL LAB CHEMISTRY METHOD 09/26/2024 1:22 PM EDT [facility] HDL 39(L) >=40 mg/dL LAB CHEMISTRY METHOD 09/26/2024 1:22 PM EDT [facility] LDL Calculated 83 0 - 100 mg/dL LAB CHEMISTRY METHOD 09/26/2024 1:22 PM EDT [facility] VLDL Cholesterol Harrison 20.2 mg/dL LAB CHEMISTRY METHOD 09/26/2024 1:22 PM EDT [facility] Non HDL Chol. (LDL+VLDL) 103 <145 mg/dL LAB CHEMISTRY METHOD 09/26/2024 1:22 PM EDT [facility] Chol/HDL Ratio 3.6 0.0 - 4.4 LAB CHEMISTRY METHOD 09/26/2024 1:22 PM EDT [facility] Blood Venous blood specimen / Unknown Venipuncture / Unknown 09/26/2024 9:27 AM EDT 09/26/2024 9:27 AM EDT us Nemo Mckinney MD LAB BLOOD ORDERABL ES Final Result [facility] [address] [place] [address], * (ABNORMAL) Hemoglobin A1c (09/26/2024 9:27 AM EDT) Hemoglobin A1C 6.9(H) <6.5 % LAB CHEMISTRY METHOD 09/26/2024 8:47 PM EDT [facility] Mean Bld Glu Estim. 151 mg/dL LAB CHEMISTRY METHOD 09/26/2024 8:47 PM EDT [facility] Blood Venous blood specimen / Unknown Venipuncture / Unknown 09/26/2024 9:27 AM EDT 09/26/2024 9:27 AM EDT Nemo Mckinney MD LAB BLOOD ORDERABL ES Final Result [facility] [address] [place] [address], * (ABNORMAL) Basic metabolic panel (09/26/2024 9:27 AM EDT) Sodium 138 133 - 145 mmol/L LAB CHEMISTRY METHOD 09/26/2024 1:17 PM [facility] Potassium 4.2 3.5 - 5.5 mmol/L LAB CHEMISTRY METHOD 09/26/2024 1:17 PM [facility] Chloride 103 96 - 110 mmol/L LAB CHEMISTRY METHOD 09/26/2024 1:17 PM [facility] CO2 26 21 - 32 mmol/L LAB CHEMISTRY METHOD 09/26/2024 1:17 PM [facility] Anion Gap 9 3 - 11 LAB CHEMISTRY METHOD 09/26/2024 1:17 PM [facility] Glucose 163(H) 70 - 100 mg/dL LAB CHEMISTRY METHOD 09/26/2024 1:17 PM [facility] BUN 21 5 - 25 mg/dL LAB CHEMISTRY METHOD 09/26/2024 1:17 PM [facility] Creatinine 0.87 0.50 - 1.10 mg/dL LAB CHEMISTRY METHOD 09/26/2024 1:17 PM [facility] eGFR 75 >=60 mL/min/1. 73m2 LAB CHEMISTRY METHOD 09/26/2024 1:17 PM [facility] Comment:Calculation based on the Chronic Kidney Disease Epidemiology Collaboration (CKD-EPI) equation refit without adjustment for race. BUN/Creatinine Ratio 24.1 LAB CHEMISTRY METHOD 09/26/2024 1:17 PM [facility] Calcium 9.0 8.5 - 10.5 mg/dL LAB CHEMISTRY METHOD 09/26/2024 1:17 PM [facility] Blood Venous blood specimen / Unknown Venipuncture / Unknown 09/26/2024 9:27 AM EDT 09/26/2024 9:27 AM EDT Nemo Mckinney MD LAB BLOOD ORDERABL ES Final Result Performing Organization Address [facility] de Phone Number [facility] [address] [place] [address], [place] [phone] * (ABNORMAL) Microalbumin creatinine urine ratio (03/26/2024 10:17 AM EST) Creatinine, Urine 314.0 mg/dL LAB CHEMISTRY METHOD 03/26/2024 2:21 PM EST [facility] Microalb, Ur 46.1(H) 0.0 - 29.0 mg/L LAB CHEMISTRY METHOD 03/26/2024 2:21 PM EST [facility] Microalb/Crea t Ratio 15 <30 mg/g creat LAB CHEMISTRY METHOD 03/26/2024 2:21 PM EST [facility] Urine Urine specimen obtained by clean catch procedure / Unknown Non-blood Collection / Unknown 03/26/2024 10:17 AM EST 03/26/2024 10:17 AM EST Nemo Mckinney MD LAB URINE ORDERABL ES Final Result Performing Organization Address [facility]/ZIP Ut de Phone Number [facility] [address] [place] [address], [place] [phone] * External Mammogram Report (01/28/2024 3:27 PM EDT) Anatomical Region Laterality Modality Mammography Historical Provider IMG BI PROCEDURES Final R esult * Diabetes Eye Exam (06/24/2023) Pathologist [facility] Diabetes: Annual Retina Eye Exam Abstracted Historical Provider HEALTH MAINTENANCE Final Result * Cervical Cancer Screening: HPV (09/09/2021) Cervical Cancer Screening: HPV Negative, Abstracted Historical Provider HEALTH MAINTENANCE Final Result * Hepatitis C Screening (10/07/2018) Hepatitis C Screening Abstracted Historical Provider HEALTH MAINTENANCE Final Result * Colonoscopy (08/23/2016) Pathologist [facility] Colonoscopy No Interpretation , Abstracted Anatomical Region Laterality Modality Other Historical Provider HEALTH MAINTENANCE Final Result from Last 3 Months or Most Recently Relevant to Health Maintenance Insurance [employer] Care Teams Roller Skate Repairer Relationship Specialty Start Date End Date Nemo Mckinney MD [address] [place] [id number] PCP - General Internal Medicine 11/16/21
== END 2025-02-02 09:40 | disposition home or self-care (01) ==
LOC: HO.MAMMO 09:39
PROVIDERS: PCP Internal Medicine; Visit Provider Internal Medicine
DX: Z12.31 Encounter for screening mammogram for malignant neoplasm of breast (principal)
CPT/HCPCS: 77063; 77067

== ENCOUNTER → 2025-02-02 10:00 | Outpatient (BNV) | payer MEDICARE, SELFPAY | PROVIDERS: PCP Internal Medicine; Visit Provider Radiology Body Imaging | DX: Z12.31 Encounter for screening mammogram for malignant neoplasm of breast (principal) | CPT/HCPCS: 77063; 77067 ==